=== PATIENT | female | born 1980 | race Caucasian/White ===

== ENCOUNTER → 2020-02-27 | Outpatient (CLI) | payer OTHER ==
[~2020-02-27] MED LIST: CETI10TA76 PO; LEVO100T5 PO; NORE0.3513 PO; OMEP-110 PO; Vitamin B12 INJ; Zinc PO; probiotic PO
[2020-02-27 10:51] LABS: BASOPHILS % (AUTO) 1 % (0-1); EOSINOPHILS % (AUTO) 3 % (1-7); LYMPHOCYTES % (AUTO) 23 % (22-44); MEAN CORPUSCULAR HEMOGLOBIN 30.1 pg (27.0-34.8); MEAN CORPUSCULAR HGB CONC 33.7 g/dL (32.4-35.8); MEAN PLATELET VOLUME 8.3 fL (7.4-10.4); MONOCYTES % (AUTO) 7 % (2-9); NEUTROPHILS % (AUTO) 65 % (42-75); PLATELET COUNT 227 x10^3/uL (130-400); RED BLOOD COUNT 4.89 x10^6/uL (3.82-5.3); RED CELL DISTRIBUTION WIDTH 12.8 % (9.6-15.2)
[2020-02-27 10:57] LABS: INTERNATIONAL NORMALIZED RATIO 0.99 (0.93-1.1); PROTHROMBIN TIME 10.5 Seconds (9.6-11.5)
[2020-02-27 10:59] LABS: ALANINE AMINOTRANSFERASE 20 U/L (12-78); ALBUMIN 4.5 g/dL (3.4-5.0); ANION GAP 2 mmol/L (5-15); CALCIUM 9.1 mg/dL (8.5-10.1); CHLORIDE 109 mmol/L (98-107); CREATININE 0.83 mg/dL (0.55-1.02)
[2020-02-27 11:01] LABS: MD NO
[2020-02-27 11:03] LABS: ALKALINE PHOSPHATASE 47 U/L (45-117); BILIRUBIN,TOTAL 0.6 mg/dL (0.2-1.0); TOTAL PROTEIN 7.5 g/dL (6.4-8.2)
== END | disposition home or self-care (01) ==
LOC: STAR 09:09
PROVIDERS: ATTEND Specialist
DX: Z01.812 Encounter for preprocedural laboratory examination (principal); R10.2 Pelvic and perineal pain; N80.8 Other endometriosis; N83.299 Other ovarian cyst, unspecified side; D25.9 Leiomyoma of uterus, unspecified; Z20.828 Contact with and (suspected) exposure to other viral communicable diseases
CPT/HCPCS: 80053; 83615; 84703; 85025; 85610; 85730; 86304; 87635

== ENCOUNTER 2020-03-04 05:43 | Day surgery (SDC) | payer OTHER ==
[~2020-03-04] VITALS: Ht 175.3 cm; Wt 60.0 kg
[2020-03-04] MEDS ORDERED: CHLORHEXIDINE 15 ML UDC MM STA (06:03)
[2020-03-04] MEDS ORDERED: LACTATED RINGERS 1,000 ML IV SCH (06:30)
[2020-03-04 06:46] LABS: HCG UR SG 1.021 (1.003-1.030)
[2020-03-04] MEDS ORDERED: EPINEPHRINE 1 MG/ML, 1ML ONE (06:48)
[2020-03-04] MEDS ORDERED: HEPARIN 1,000 UNITS/ML, 10ML ONE (06:48)
[2020-03-04] MEDS ORDERED: BUPIVACAINE/PF 0.25% ONE (06:48)
[2020-03-04] MEDS ORDERED: MIDAZOLAM 1 MG/ML, 2ML ONE ×2 (07:16→07:17)
[2020-03-04] MEDS ORDERED: FENTANYL PF 250 MCG/5ML ONE ×2 (07:17→08:34)
[2020-03-04] MEDS ORDERED: MEPERIDINE/PF 25MG/0.5ML IVPush PRN (07:30)
[2020-03-04] MEDS ORDERED: OXYcodone 5 MG/5 ML ORAL.SOL UDC PO PRN (07:30)
[2020-03-04] MEDS ORDERED: EPHEDRINE 50 MG/ML, 1ML IM PRN (07:30)
[2020-03-04] MEDS ORDERED: ACETAMINOPHEN 325 MG TABLET PO PRN (07:30)
[2020-03-04] MEDS ORDERED: LABETALOL 5MG/ML, 20ML IV PRN (07:30)
[2020-03-04] MEDS ORDERED: METHOCARBAMOL 1,000 MG in DEXTROSE 5% 100 ML IV PRN (07:30)
[2020-03-04] MEDS ORDERED: EPHEDRINE 50 MG/ML, 1ML IVPush PRN (07:30)
[2020-03-04] MEDS ORDERED: ONDANSETRON 2MG/ML, 2ML IVPush PRN (07:30)
[2020-03-04] MEDS ORDERED: LORazepam 2 MG/ML, 1ML IVPush PRN (07:30)
[2020-03-04] MEDS ORDERED: FENTANYL PF 100 MCG/2ML IV PRN (07:30)
[2020-03-04] MEDS ORDERED: HALOPERIDOL 5 MG/ML IV PRN (07:30)
[2020-03-04] MEDS ORDERED: HYDROmorphone 1 MG/ML, 1ML INJ IVPush PRN (07:30)
[2020-03-04] MEDS ORDERED: hydrALAzine 20 MG/ML, 1ML IV PRN (07:30)
[2020-03-04] MEDS ORDERED: PROMETHAZINE 25 MG/ML, 1ML IVPush PRN (07:30)
[2020-03-04] MEDS ORDERED: PROPOFOL 50 ML ONE ×2 (07:48→09:01)
[2020-03-04] MEDS ORDERED: KETOROLAC 30 MG/1 ML ONE (07:57)
[2020-03-04] MEDS ORDERED: ONDANSETRON 2MG/ML, 2ML ONE (07:57)
[2020-03-04] MEDS ORDERED: ROCURONIUM 10 MG/ML,10ML ONE (07:57)
[2020-03-04] MEDS ORDERED: CEFAZOLIN 1,000 MG ONE (07:57)
[2020-03-04] MEDS ORDERED: DEXAMETHASONE 4 MG/ML, 1ML ONE (07:57)
[2020-03-04] MEDS ORDERED: SUCCINYLCHOLINE 20 MG/ML, 10ML ONE (07:57)
[2020-03-04] MEDS ORDERED: PROPOFOL 10 MG/ML, 20ML ONE (07:57)
[2020-03-04] MEDS ORDERED: METOCLOPRAMIDE 5 MG/ML, 2ML ONE (07:57)
[2020-03-04] MEDS ORDERED: MEPERIDINE/PF 25MG/ML,1ML ONE (10:13)
[2020-03-04] MEDS ORDERED: FENTANYL PF 100 MCG/2ML ONE (10:13)
[2020-03-04] MEDS ORDERED: OXYcodone 5 MG/5 ML ORAL.SOL UDC ONE (10:14)
== END 2020-03-04 15:30 | disposition home or self-care (01) ==
LOC: OUT 05:43
PROVIDERS: ATTEND Specialist
DX: N80.3 Endometriosis of pelvic peritoneum (principal); N80.0 Endometriosis of uterus; D25.1 Intramural leiomyoma of uterus; D25.0 Submucous leiomyoma of uterus; D25.2 Subserosal leiomyoma of uterus; N72 Inflammatory disease of cervix uteri; N88.8 Other specified noninflammatory disorders of cervix uteri; N73.6 Female pelvic peritoneal adhesions (postinfective); K21.9 Gastro-esophageal reflux disease without esophagitis; E03.9 Hypothyroidism, unspecified; G43.909 Migraine, unspecified, not intractable, without status migrainosus; Z79.890 Hormone replacement therapy; Z79.899 Other long term (current) drug therapy; Z88.0 Allergy status to penicillin; Z90.721 Acquired absence of ovaries, unilateral; Z98.890 Other specified postprocedural states
CPT/HCPCS: 36415; 58554; 74018; 81025; 86850; 86900; 86923; 88305; 88307; J0171; J0330; J0690; J1100; J1644; J1885; J2175; J2250; J2405; J2704; J2765; J3010; J7120; S2900